=== PATIENT | female | born 2000 | race Caucasian/White ===

== ENCOUNTER 2024-01-23 22:10 | Emergency (ER) | payer OTHER ==
[2024-01-23 22:20] VITALS: BP 128/86; PULSE 82; RESP 18; TEMP 98.2; BMI 28.3
[2024-01-23 23:10] LABS: PH,URINE 5.5 (5.0-8.0); URINE APPEARANCE CLEAR; URINE BILIRUBIN NEGATIVE (NEGATIVE); URINE COLOR YELLOW; URINE GLUCOSE (UA) NEGATIVE (NEGATIVE); URINE KETONE 3+ (NEGATIVE); URINE LEUK ESTERASE NEGATIVE (NEGATIVE); URINE NITRITE NEGATIVE (NEGATIVE); URINE PROTEIN TRACE (NEGATIVE)
[2024-01-23] MEDS ORDERED: metroNIDAZOLE 250 MG TABLET ONE (23:43)
[2024-01-23] MEDS ORDERED: AZITHROMYCIN 500 MG TABLET ONE (23:44)
[2024-01-23] MEDS: metroNIDAZOLE 250 MG TABLET PO ONE (23:48)
[2024-01-23] MEDS: AZITHROMYCIN 500 MG TABLET PO ONE (23:48)
[2024-01-23] MEDS: CEFTRIAXONE 1,000 MG in DEXTROSE 5%-WATER - 50 ML IVPB ONE (23:48)
[2024-01-23] MEDS: AZITHROMYCIN IVPB 500 MG in DEXTROSE 5%-WATER - 250 ML IVPB ONE (23:48)
== END 2024-01-24 01:03 | disposition home or self-care (01) ==
LOC: JER 22:10
DX: O26.891 Other specified pregnancy related conditions, first trimester (principal); N89.8 Other specified noninflammatory disorders of vagina; R10.30 Lower abdominal pain, unspecified; M54.50 Low back pain, unspecified; O30.001 Twin pregnancy, unspecified number of placenta and unspecified number of amniotic sacs, first trimester; Z20.2 Contact with and (suspected) exposure to infections with a predominantly sexual mode of transmission; Z3A.11 11 weeks gestation of pregnancy
CPT/HCPCS: 36415; 76817-TC; 81003; 84703; 87086; 87491; 87591; 87661; 99284-25